=== PATIENT | female | born 1960 | race Caucasian/White ===

== ENCOUNTER → 2016-12-10 17:03 | Outpatient (CLI) | payer BC ==
[2013-12-29 13:14] VITALS: BMI 24.9
[~2016-12-10 17:03] MED LIST: AQUASOL E50 UNIT/ML PO; ASPIRIN EC81 MG; CO Q-10100 MG PO; DETROL LA4 MG; EVENING PRIMROSE OIL PO; GLUCOSAMINE & C1 CAP PO; HYDROCHLOROTH12.5 M1 PO; ICAPS AREDS1 TAB.SA PO; MULTIPLE VITAMI1 TA1; OYST-CAL-5001 TAB PO; PROPRANOLOL HCL20 MG; SLOW-MAG 64 MG64 MG PO; VITAMIN B-122500 MCG SL; VITAMIN C500 MG PO
== END | disposition home or self-care (01) ==
LOC: D.MAMMO 09-12 10:15
DX: Z12.31 Encounter for screening mammogram for malignant neoplasm of breast (principal)

== ENCOUNTER → 2016-12-22 16:32 | Outpatient (CLI) | payer BC ==
[2013-12-29 13:14] VITALS: BMI 24.9
[2016-12-22 17:48] LABS: T4 THYROXIN - FREE 1.37 ng/dL (0.76-1.46); THYROID STIMULATING HORMONE 1.61 uIU/mL (0.36-3.74)
== END | disposition home or self-care (01) ==
LOC: D.LABREF 16:32
PROVIDERS: Internal Medicine Endocrinology, Diabetes & Metabolism
DX: E89.0 Postprocedural hypothyroidism (principal)

== ENCOUNTER → 2017-03-05 18:08 | Outpatient (CLI) | payer BC ==
[2013-12-29 13:14] VITALS: BMI 24.9
[2017-03-05 18:47] LABS: T4 THYROXIN - FREE 1.4 ng/dL (0.76-1.46); THYROID STIMULATING HORMONE 0.45 uIU/mL (0.36-3.74)
== END | disposition home or self-care (01) ==
LOC: D.LABREF 18:08
PROVIDERS: Internal Medicine Endocrinology, Diabetes & Metabolism
DX: E89.0 Postprocedural hypothyroidism (principal)

== ENCOUNTER → 2017-06-26 15:10 | Outpatient (CLI) | payer BC ==
[2013-12-29 13:14] VITALS: BMI 24.9
[2017-06-26 19:41] LABS: T4 THYROXIN - FREE 1.48 ng/dL (0.76-1.46); THYROID STIMULATING HORMONE 0.98 uIU/mL (0.36-3.74)
== END | disposition home or self-care (01) ==
LOC: D.LABREF 15:10
PROVIDERS: Internal Medicine Endocrinology, Diabetes & Metabolism
DX: E89.0 Postprocedural hypothyroidism (principal)

== ENCOUNTER → 2018-01-01 16:02 | Outpatient (CLI) | payer BC ==
[2013-12-29 13:14] VITALS: BMI 24.9
[2018-01-01 16:36] LABS: T4 THYROXIN - FREE 1.47 ng/dL (0.76-1.46); THYROID STIMULATING HORMONE 0.49 uIU/mL (0.36-3.74)
== END | disposition home or self-care (01) ==
LOC: D.LABREF 16:02
PROVIDERS: Internal Medicine Endocrinology, Diabetes & Metabolism
DX: E89.0 Postprocedural hypothyroidism (principal)

== ENCOUNTER 2018-09-09 10:15 | Outpatient (CLI) | payer BC ==
[2013-12-29 13:14] VITALS: BMI 24.9
== END 2018-09-09 23:59 | disposition home or self-care (01) ==
LOC: D.MAMMO 10:15
DX: Z12.31 Encounter for screening mammogram for malignant neoplasm of breast (principal)

== ENCOUNTER → 2018-09-15 10:14 | Outpatient (CLI) | payer BC ==
[2013-12-29 13:14] VITALS: BMI 24.9
== END | disposition home or self-care (01) ==
LOC: D.US 09-14 11:00
DX: N81.4 Uterovaginal prolapse, unspecified (principal)

== ENCOUNTER → 2018-10-07 14:55 | Outpatient (CLI) | payer BC ==
[2013-12-29 13:14] VITALS: BMI 24.9
[2018-10-07 16:01] LABS: ANION GAP 12.1 mmol/L (8-16); CALCIUM 8.6 mg/dL (8.5-10.1); CARBON DIOXIDE 30.3 mmol/L (21.0-32.0); POTASSIUM - SERUM 3.4 mmol/L (3.5-5.1)
== END | disposition home or self-care (01) ==
LOC: D.LAB 14:55
PROVIDERS: Obstetrics & Gynecology
DX: N81.4 Uterovaginal prolapse, unspecified (principal)

== ENCOUNTER → 2019-05-10 14:55 | Outpatient (CLI) | payer BC ==
[2013-12-29 13:14] VITALS: BMI 24.9
== END | disposition home or self-care (01) ==
LOC: D.LABREF 14:55
DX: Z01.812 Encounter for preprocedural laboratory examination (principal)

== ENCOUNTER 2020-07-11 18:30 | Outpatient (CLI) | payer BC ==
[2013-12-29 13:14] VITALS: BMI 24.9
== END 2020-07-11 23:59 | disposition home or self-care (01) ==
LOC: D.MAMMO 18:30
PROVIDERS: ATTEND Family Medicine
DX: Z12.31 Encounter for screening mammogram for malignant neoplasm of breast (principal)

== ENCOUNTER 2020-07-17 16:30 | Outpatient (CLI) | payer BC ==
[2013-12-29 13:14] VITALS: BMI 24.9
== END 2020-07-17 23:59 | disposition home or self-care (01) ==
LOC: D.MAMMO 16:30
PROVIDERS: ATTEND Family Medicine
DX: R92.8 Other abnormal and inconclusive findings on diagnostic imaging of breast (principal)

== ENCOUNTER → 2021-01-07 08:08 | Outpatient (CLI) | payer BC ==
[2020-10-23 09:38] VITALS: BMI 28.4
[~2021-01-07 08:08] MED LIST changes: +HYDROXYCHLOROQ200 MG PO; +SYNTHROID100 MCG PO; +VOLTAREN25 MG PO
== END | disposition home or self-care (01) ==
LOC: D.MRI 08:00
PROVIDERS: ATTEND Family Medicine
DX: M25.552 Pain in left hip (principal)